=== PATIENT | female | born 1990 | race Caucasian/White ===

== ENCOUNTER 2018-06-15 21:14 | Emergency (ER) | payer OTHER | END 2018-06-15 22:47 | disposition home or self-care (01) | LOC: FTE 21:14 | DX: R21 Rash and other nonspecific skin eruption (principal) | CPT/HCPCS: 99282 ==

== ENCOUNTER 2018-10-20 05:02 | Emergency (ER) | payer OTHER | END 2018-10-20 07:00 | disposition home or self-care (01) | LOC: FTE 05:02 | DX: H92.01 Otalgia, right ear (principal) | CPT/HCPCS: 99283; Z7502 ==